=== PATIENT | female | born 1965 | race Caucasian/White ===

== ENCOUNTER 2016-11-14 14:34 | Emergency (ER) | payer OTHER ==
--- NOTE | 2016-11-14 15:32 | ED NURSING NOTES ---
Clinical Report - Nurses [facility] [address] [place] [address] 11/14/2016 14:37 Patient: CONNIE BASHIR TRIAGE Triage time 14:52 Nov 14 2016. Chief Complaint: Location of symptoms- (base/snuff box area to right hand, pt was compounding an IV bag and the glass ampule broke, pt reports lots of bleeding inititally, now controlled). Alert. No acute distress. SEPSIS SCREEN: Sepsis Screen: negative. Negative (no infection suspected/documented). MICHA COMA SCORE: Micha Coma Scale: 15- eyes open spontaneously (4); best verbal response- oriented x 4 (5); best motor response- obeys commands (6). --15:02 Irma Kwan R.N. 14:52 11/14/16. BP: 129/94. HR: 98. RR: 17. O2 saturation: 100%. Temp: 98.5 F. Pain level now: 12/30. --15:02 Imra Kwan R.N. Weight: 94.3 kg stated. Height/Length: 61 inches Per Patient. BMI: 39.3. --15:00 Irma Kwan R.N. Medications Multivitamins Oral. --14:55 Irma Kwan R.N. Allergies Penicillins. --14:59 Irma Kwan R.N. History Arrived walking. Injury occurred. Location of injuries: anatomic snuffbox, right arm. This occurred just prior to arrival. PAST MEDICAL HX: Tetanus status: unknown. Immunizations: up-to-date. Last normal menstrual period- right now day 2. SOCIAL HX: Never smoker. Alcohol use; consumes one liquor weekly. No infectious disease exposure. ABUSE ASSESSMENT: No report of abuse. SELF HARM ASSESSMENT: A self harm assessment was performed. The patient answered "no" to the question "Have you recently felt down, depressed, or hopeless?", "Have you noticed less interest or pleasure in doing things?", "Do you have thoughts of harming or killing yourself?", "Are you here because you tried to hurt yourself?", "Have you ever tried to hurt yourself before today?", "Have you recently had thoughts about harming or killing others?" and "Do you have any dangerous items in your possession?". FALL RISK ASSESSMENT: Fall risk assessment completed. No fall risk identified. NUTRITIONAL RISK ASSESSMENT: The nutritional risk assessment revealed no deficiencies. FUNCTIONAL ASSESSMENT: Functional assessment: no impairments noted. LEARNING NEEDS ASSESSMENT: The learning needs assessment revealed no barriers. SKIN INTEGRITY ASSESSMENT: Skin integrity risk assessment completed. No skin integrity risk identified. --15:02 Irma Kwan R.N. PROBLEMS: Anxiety Reaction. PTSD. --14:56 Irma Kwan R.N. DVT - Deep Venous Thrombosis. --14:56 Irma Kwan R.N. Factor 5 Liden . --14:56 Irma Kwan R.N. ADDITIONAL SURGERIES: Appendectomy. Born with third lung. Tubal Ligation. --14:56 Irma Kwan R.N. Interventions ID and allergy band on patient. To treatment room. --15:02 Irma Kwan R.N. PHYSICAL ASSESSMENT Ambulatory to room. GENERAL / NEURO / PSYCH: Oriented X 4. Alert. Appears in no acute distress. Appears in pain and anxious. EXTREMITIES: Extremities exhibit normal ROM. Neuro-vascular status intact to the extremity. No upper extremity edema. Right hand: subcutaneous 0.5 cm laceration with controlled bleeding. SKIN: Skin intact. Skin is warm and dry. --15:02 Irma Kwan R.N. NURSING PROGRESS NOTES Extremity elevated. Reassurance given. Two patient identifiers checked. Call light placed in reach. Side rails up x 1. Bed placed in lowest position. Brakes of bed on. --15:03 Irma Kwan R.N. 15:22 11/14/2016 Lidocaine Injection. (pulled from [employer] and given to ELECTRICIAN LOCOMOTIVE). --15:33 Irma Kwan R.N. Wound cleansed with sterile saline (per ELECTRICIAN LOCOMOTIVE). WOUND REPAIR: Wound repair performed by ELECTRICIAN LOCOMOTIVE. Preparation: suture tray set-up with 1% lidocaine. Wound cleansed per ELECTRICIAN LOCOMOTIVE. Procedure: wound repaired with sutures. Post-procedure: she was stable, no complications, bleeding controlled, neuro-vascular status intact distal to wound and dressing applied. Total time of assist / procedure: 15 minutes. --15:34 Irma Kwan R.N. Wound cleansed. Applied dressing, following the application of antibiotic ointment. Secured with mateo. --15:51 Shanti Allison, Tech1. DISPOSITION / DISCHARGE Condition at departure: improved. No learning barriers present. Discharge instructions provided and reviewed with the patient. Patient verbalized understanding. Written instructions provided in Icelandic. The patient was discharged by the nurse practitioner. She was discharged to work. She left the Emergency Department ambulatory. ( signs of infection gone over with pt as well as wound care and suture removal. L/I paperwork given to demurrage clerk, wound upon dc c/d/i , dressing placed by DIONTE Lal.). --16:05 Irma Kwan R.N. 16:03 11/14/16. BP: 120/81 taken on the left arm, while sitting. HR: 81. RR: 17. O2 saturation: 100%. Temp: 98 F (oral). Pain level now: 0/10. --16:05 Irma Kwan R.N. Locked/Released at 11/14/2016 16:05 by Irma Kwan R.N.
--- NOTE | 2016-11-14 15:32 | ED NURSING NOTES ---
Clinical Report - Nurses [facility] [address] [place] [address] 11/14/2016 14:37 Patient: CONNIE BASHIR TRIAGE Triage time 14:52 Nov 14 2016. Chief Complaint: Location of symptoms- (base/snuff box area to right hand, pt was compounding an IV bag and the glass ampule broke, pt reports lots of bleeding inititally, now controlled). Alert. No acute distress. SEPSIS SCREEN: Sepsis Screen: negative. Negative (no infection suspected/documented). MICHA COMA SCORE: Micha Coma Scale: 15- eyes open spontaneously (4); best verbal response- oriented x 4 (5); best motor response- obeys commands (6). --15:02 Irma Kwan R.N. 14:52 11/14/16. BP: 129/94. HR: 98. RR: 17. O2 saturation: 100%. Temp: 98.5 F. Pain level now: 12/30. --15:02 Irma Kwan R.N. Weight: 94.3 kg stated. Height/Length: 61 inches Per Patient. BMI: 39.3. --15:00 Irma Kwan R.N. Medications Multivitamins Oral. --14:55 Irma Kwan R.N. Allergies Penicillins. --14:59 Irma Kwan R.N. History Arrived walking. Injury occurred. Location of injuries: anatomic snuffbox, right arm. This occurred just prior to arrival. PAST MEDICAL HX: Tetanus status: unknown. Immunizations: up-to-date. Last normal menstrual period- right now day 2. SOCIAL HX: Never smoker. Alcohol use; consumes one liquor weekly. No infectious disease exposure. ABUSE ASSESSMENT: No report of abuse. SELF HARM ASSESSMENT: A self harm assessment was performed. The patient answered "no" to the question "Have you recently felt down, depressed, or hopeless?", "Have you noticed less interest or pleasure in doing things?", "Do you have thoughts of harming or killing yourself?", "Are you here because you tried to hurt yourself?", "Have you ever tried to hurt yourself before today?", "Have you recently had thoughts about harming or killing others?" and "Do you have any dangerous items in your possession?". FALL RISK ASSESSMENT: Fall risk assessment completed. No fall risk identified. NUTRITIONAL RISK ASSESSMENT: The nutritional risk assessment revealed no deficiencies. FUNCTIONAL ASSESSMENT: Functional assessment: no impairments noted. LEARNING NEEDS ASSESSMENT: The learning needs assessment revealed no barriers. SKIN INTEGRITY ASSESSMENT: Skin integrity risk assessment completed. No skin integrity risk identified. --15:02 Irma Kwan R.N. PROBLEMS: Anxiety Reaction. PTSD. --14:56 Irma Kwan R.N. DVT - Deep Venous Thrombosis. --14:56 Irma Kwan R.N. Factor 5 Liden . --14:56 Irma Kwan R.N. ADDITIONAL SURGERIES: Appendectomy. Born with third lung. Tubal Ligation. --14:56 Irma Kwan R.N. Interventions ID and allergy band on patient. To treatment room. --15:02 Irma Kwan R.N. PHYSICAL ASSESSMENT Ambulatory to room. GENERAL / NEURO / PSYCH: Oriented X 4. Alert. Appears in no acute distress. Appears in pain and anxious. EXTREMITIES: Extremities exhibit normal ROM. Neuro-vascular status intact to the extremity. No upper extremity edema. Right hand: subcutaneous 0.5 cm laceration with controlled bleeding. SKIN: Skin intact. Skin is warm and dry. --15:02 Irma Kwan R.N. NURSING PROGRESS NOTES Extremity elevated. Reassurance given. Two patient identifiers checked. Call light placed in reach. Side rails up x 1. Bed placed in lowest position. Brakes of bed on. --15:03 Irma Kwan R.N. 15:22 11/14/2016 Lidocaine Injection. (pulled from [employer] and given to CUSTOMER TECHNICAL SERVICES MANAGER). --15:33 Irma Kwan R.N. Wound cleansed with sterile saline (per CUSTOMER TECHNICAL SERVICES MANAGER). WOUND REPAIR: Wound repair performed by CUSTOMER TECHNICAL SERVICES MANAGER. Preparation: suture tray set-up with 1% lidocaine. Wound cleansed per CUSTOMER TECHNICAL SERVICES MANAGER. Procedure: wound repaired with sutures. Post-procedure: she was stable, no complications, bleeding controlled, neuro-vascular status intact distal to wound and dressing applied. Total time of assist / procedure: 15 minutes. --15:34 Irma Kwan R.N. Wound cleansed. Applied dressing, following the application of antibiotic ointment. Secured with mateo. --15:51 Shanti Allison, Tech1. DISPOSITION / DISCHARGE Condition at departure: improved. No learning barriers present. Discharge instructions provided and reviewed with the patient. Patient verbalized understanding. Written instructions provided in Lithuanian. The patient was discharged by the nurse practitioner. She was discharged to work. She left the Emergency Department ambulatory. ( signs of infection gone over with pt as well as wound care and suture removal. L/I paperwork given to stock transfer clerk, wound upon dc c/d/i , dressing placed by DIONTE Lal.). --16:05 Irma Kwan R.N. 16:03 11/14/16. BP: 120/81 taken on the left arm, while sitting. HR: 81. RR: 17. O2 saturation: 100%. Temp: 98 F (oral). Pain level now: 0/10. --16:05 Irma Kwan R.N. Locked/Released at 11/14/2016 16:05 by Irma Kwan R.N.
--- NOTE | 2016-11-14 15:32 | ED CLINICAL REPORT ---
Clinical Report - Physicians/Mid Levels [facility] [address] [place] [address] 11/14/2016 14:37 Patient: CONNIE BASHIR Time Seen: 14:56; initial patient contact, initial documentation, patient care assumed. Arrived- By private vehicle. Historian- patient. HISTORY OF PRESENT ILLNESS Chief Complaint: Injury to the right hand. The injury happened just prior to arrival. The patient sustained a laceration from broken glass (attempting to open glass ampule/vial, it broke, cutting hand). Occurred at work. Patient is experiencing mild pain. Patient denies injury to the head or neck. REVIEW OF SYSTEMS The patient sustained a laceration. No swelling, tingling, numbness, weakness or foreign body. All systems otherwise negative, except as recorded above. PAST HISTORY See nurses notes. PROBLEMS: Anxiety Reaction. PTSD. --14:56 Irma Kwan REnrique. DVT - Deep Venous Thrombosis. --14:56 Irma Kwan R.N. ADDITIONAL SURGERIES: Appendectomy. Born with third lung. Tubal Ligation. --14:56 Irma Kwan REnrique. The patient's dominant hand is the right. Tetanus immunization status is up-to-date. SOCIAL HISTORY Never smoker. Occasional alcohol use. No drug use. No recent travel. Is a local resident. FAMILY HISTORY No significant family medical history. ADDITIONAL NOTES The nursing notes have been reviewed with agreement regarding the chief complaint, HPI, ROS, PMH and patient medications and allergies. PHYSICAL EXAM Vital Signs: 11/14/2016 14:52 BP: 129/94. HR: 98. RR: 17. O2 saturation: 100%. Temp: 98.5 F. Pain level now: 6/10. Have been reviewed as abnormal. Hypertensive. Heart rate normal. Respiratory rate normal. Temperature normal. Oxygen saturation normal. Appearance: Alert. Oriented X3. Anxious. No acute distress. Head: Head atraumatic. Eyes: Pupils equal, round and reactive to light. Eyes normal inspection. Respiratory: No respiratory distress. Skin: Skin warm and dry. Skin intact. Extremities: Hand injury present. Dorsal right hand: mild tenderness and subcutaneous 1.0 cm laceration of the radial aspect of the dorsal hand. Neurovascular intact distally. No erythema, swelling, abrasion, ecchymosis or puncture wound. No foreign body or deformity. No limitation of extension. No wrist injury. Hand and wrist exam otherwise negative. Extremities otherwise negative. Neuro, Vascular and Tendons: Vascular status intact. Sensation intact. Motor intact. Tendon function intact. Neuro: Oriented X 3. No motor deficit. No sensory deficit. Note: isolated injury to hand. PROGRESS AND PROCEDURES Laceration Repair: Location: right hand. Length: 1 cm. Complexity: simple (local anesthesia used and sutured). Wound depth/shape- subcutaneous and linear and involving fascia. Wound is clean. No contamination, foreign body or contused tissue present. No tissue loss. Distal neuro/vascular/tendon status normal. Tendon not examined. No tendon deficit or laceration or tendon injury. Local anesthesia provided using 1% lidocaine (2 mL). Prepped with Betadine. Wound explored, cleansed, irrigated and examined to the base in bloodless field with normal saline. Wound not debrided extensively. No foreign material removed. Closure of skin: 4-0 nylon (2 sutures). No skin adhesive applied. Post-procedure: she is stable and there are no complications. Bleeding is controlled and neuro-vascular status is intact distal to the wound. Clean dressing applied. (per nurse/tech, see other notes). Tetanus immunization up-to-date. Estimated blood loss: 5 mL. Course of Care: 15:32 11/14/16. L&I paperwork completed. Patient counseled in person regarding the patient's stable condition and diagnosis. Differential Diagnosis: Other possible considerations: hand lac, fb, skin avulsion. Above considerations are based on history and physical exam. Differential diagnosis was discussed with patient. Disposition: Discharged home in good and improved condition (15:31). Condition: good and stable. CLINICAL IMPRESSION Single deep laceration to the right hand.Treatment of laceration not delayed. No infection, foreign body present or right fingernail injury. INSTRUCTIONS Protect wound and keep wound area clean. Change dressing twice daily. Soak in warm soapy water twice daily. Apply bacitracin twice daily. Sutures should be removed in ten days. Warnings: GENERAL WARNINGS: Return or contact your physician immediately if your condition worsens or changes unexpectedly, if not improving as expected, or if other problems arise. Specifically return if problem worsens. Follow-up: Follow up with your doctor in about ten days even if well and for suture removal and wound check. Call for an appointment. Summary of care provided to patient. Understanding of the discharge instructions verbalized by patient. (Electronically signed by Leora Chandler A.R.N.P. 11/14/2016 16:27)
--- NOTE | 2016-11-14 15:32 | ED ORDER SUMMARY ---
..... Patient: CONNIE BASHIR OrderSheet [facility] VisitID: [id number] [address] [place] [address] 50y, F Registration Date/Time: 11/14/2016 ORDER SHEET Weight: 94.3 kg (stated) Allergies: Penicillins GENERAL ORDERS: Suture Set-up: (15:12 11/14/2016 HBivens A.R.N.P.) (15:30 Melita R.N.) Dress Wounds (15:12 11/14/2016 HBivens A.R.N.P.) (15:40 KPakatherine-Miltonchan R.N.) MEDICATION ORDERS: Lidocaine Injection 1% plain (NOW) (15:11 11/14/2016 HBivens A.R.N.P.) (15:33 KPage-Kuchan R.N.) IV FLUIDS: ORDER SHEET NOTES: [Electronically signed by Irma Kwan R.N. (16:05 11/14/2016)] [Electronically signed by Leora ChandlerR.N.P. (16:27 11/14/2016)] [Electronically locked/signed by Irma Kwan R.N. (16:11/14/2016)]
--- NOTE | 2016-11-14 15:32 | ED ORDER SUMMARY ---
..... Patient: CONNIE BASHIR OrderSheet [facility] VisitID: [id number] [address] [place] [address] 50y, F Registration Date/Time: 11/14/2016 ORDER SHEET Weight: 94.3 kg (stated) Allergies: Penicillins GENERAL ORDERS: Suture Set-up: (15:12 11/14/2016 HBivens A.R.N.P.) (15:30 Melita R.N.) Dress Wounds (15:12 11/14/2016 HBivens A.R.N.P.) (15:40 KPakatherine-Miltonchan R.N.) MEDICATION ORDERS: Lidocaine Injection 1% plain (NOW) (15:11 11/14/2016 HBivens A.R.N.P.) (15:33 KPage-Kuchan R.N.) IV FLUIDS: ORDER SHEET NOTES: [Electronically signed by Irma Kwan R.N. (16:05 11/14/2016)] [Electronically signed by Leora ChandlerR.N.P. (16:27 11/14/2016)] [Electronically locked/signed by Irma Kwan R.N. (16:11/14/2016)]
--- NOTE | 2016-11-14 16:28 | ED MAR SUMMARY ---
..... Medication Administration Record [facility] [address] [place] [address] Patient: CONNIE BASHIR Visit ID: [id number] 50y, F Weight: 94.3 kg Height/Length: 61 in BMI: 39.3 ALLERGIES: Penicillins Given 15:22 11/14/2016 Irma Kwan R.N. Medication Administered: LIDOCAINE [INJECTION], Dose: Injection. Medication Ordered: Lidocaine Injection 1% plain (NOW).
--- NOTE | 2016-11-14 16:28 | ED MAR SUMMARY ---
..... Medication Administration Record [facility] [address] [place] [address] Patient: CONNIE BASHIR Visit ID: [id number] 50y, F Weight: 94.3 kg Height/Length: 61 in BMI: 39.3 ALLERGIES: Penicillins Given 15:22 11/14/2016 Irma Kwan R.N. Medication Administered: LIDOCAINE [INJECTION], Dose: Injection. Medication Ordered: Lidocaine Injection 1% plain (NOW).
--- NOTE | 2016-11-14 16:28 | ED MED RECONCILIATION SUMMARY ---
Patient: CONNIE BASHIR Medication Reconciliation Report [facility] VisitID: [id number] [address] [place] [address] 50y, F Registration Date/Time: 11/14/2016 Weight: 94.3 kg Height/Length: 61 in. BMI: 39.3 ALLERGIES: Penicillins The patient's Home Medications are listed below: THE FOLLOWING MEDICATIONS NEED TO BE RECONCILED: Multivitamins Oral The source(s) of the original Home Medication information: Not obtained. The following Medications were given to the patient in the Emergency Department: Lidocaine [Injection] Injection, administered: 11/14/2016 3:22:00 PM The following Medications were prescribed to the patient: None.
--- NOTE | 2016-11-14 16:28 | ED MED RECONCILIATION SUMMARY ---
Patient: CONNIE BASHIR Medication Reconciliation Report [facility] VisitID: [id number] [address] [place] [place] [address] 50y, F Registration Date/Time: 11/14/2016 Weight: 94.3 kg Height/Length: 61 in. BMI: 39.3 ALLERGIES: Penicillins The patient's Home Medications are listed below: THE FOLLOWING MEDICATIONS NEED TO BE RECONCILED: Multivitamins Oral The source(s) of the original Home Medication information: Not obtained. The following Medications were given to the patient in the Emergency Department: Lidocaine [Injection] Injection, administered: 11/14/2016 3:22:00 PM The following Medications were prescribed to the patient: None.
--- NOTE | 2016-11-14 16:28 | ED DISCHARGE INSTRUCTIONS ---
Patient: CONNIE BASHIR General Instructions [facility] VisitID: [id number] [address] [place] [address] 50y, F Registration Date/Time: 11/14/2016 Single deep laceration to the right hand.Treatment of laceration not delayed. No infection, foreign body present or right fingernail injury. INSTRUCTIONS Protect wound and keep wound area clean. Change dressing twice daily. Soak in warm soapy water twice daily. Apply bacitracin twice daily. Sutures should be removed in ten days. Warnings: GENERAL WARNINGS: Return or contact your physician immediately if your condition worsens or changes unexpectedly, if not improving as expected, or if other problems arise. Specifically return if problem worsens. Follow-up: Follow up with your doctor in about ten days even if well and for suture removal and wound check. Call for an appointment. Summary of care provided to patient. Understanding of the discharge instructions verbalized by patient. ADDITIONAL INFORMATION Laceration (All Closures) Alaceration is a cut through the skin. This will usually require stitches (sutures) or milla if it is deep. Minor cuts may be treated with a surgical tape closure orskin glue. Home care The following guidelines will help you care for your laceration at home: Extremity, face, or trunk wounds Keep the wound clean and dry. If a bandage was applied and it becomes wet or dirty, replace it. Otherwise, leave it in place for the first 24 hours. If stitches or milla were used, clean the wound daily. After removing the bandage, wash the area with soap and water. Use a wet cotton swab to loosen and remove any blood or crust that forms. The doctor may prescribe an antibiotic cream or ointment to prevent infection. Do not stop taking this medication until you have finished the prescribed course or the doctor tells you to stop. The doctor may also prescribe medications for pain. Follow the doctors instructions for taking these medications. You may remove the bandage to shower as usual after the first 24 hours, but do not soak the area in water (no swimming) until the stitches or milla are removed. If surgical tape was used, keep the area clean and dry. If it becomes wet, blot it dry with a towel. If skin glue was used, do not scratch, rub, or pick at the adhesive film. Do not place tape directly over the film. Do not apply liquid, ointment, or creams to the wound while the film is in place. Do not clean the wound with peroxide and do not apply ointments. Avoid activities that cause heavy sweating until the film has fallen off. Protect the wound from prolonged exposure to sunlight or tanning lamps. You may shower as usual but do not soak the wound in water (no baths or swimming). The film will fall off by itself in 510 days. Scalp wounds During the first two days, you may carefully rinse your hair in the shower to remove blood, glass or dirt particles. After two days, you may shower and shampoo your hair normally. Do not soak your scalp in the tub or go swimming until the stitches or milla have been removed. Talk with your doctor before applying any antibiotic ointment to the wound. Mouth wounds Eat soft foods to reduce pain. If the cut is inside of your mouth, clean by rinsing after each meal and at bedtime with a mixture of equal parts water and hydrogen peroxide (do not swallow!). Or, you can use a cotton swab to directly apply hydrogen peroxide onto the cut. Mouth wounds can be painful when eating. You may use an [id number] local numbing solution for pain relief. If this is not available, you may use any numbing solution for teething babies. You may apply this directly to the sores with a cotton-tip swab or with your finger. Follow-up care Follow up with your health care provider. Most skin wounds heal within ten days. Mouth and facial wounds heal within five days. However, even with proper treatment, a wound infection may sometimes occur. Therefore, you should check the wound daily for signs of infection listed below. Stitches should be removed from the face within five days; stitches and milla should be removed from other parts of the body within 714 days. If dissolving stitches were used in the mouth, these will fall out or dissolve without the need for removal. If tape closures were used, remove them yourself if they have not fallen off after 7 days. Ifskin glue was used, the film will fall off by itself in 510 days. When to seek medical care Get prompt medical attention if any of these occur: Bleeding not controlled by direct pressure Signs of infection, including increasing pain in the wound, increasing wound redness or swelling, or pus coming from the wound Fever of 100.4F (38C) or higher, or as directed by your health care provider Stitches or milla come apart or fall out or surgical tape falls off before 7 days Wound edges re-open Laceration, Extremity (Sutures, Check, Or Tape) A laceration is a cut through the skin. This will usually require stitches (sutures) or milla if it is deep. Minor cuts may be treated with surgical tape closures. Home care The following guidelines will help you care for your laceration at home: Keep the wound clean and dry. If a bandage was applied and it becomes wet or dirty, replace it. Otherwise, leave it in place for the first 24 hours, then change it once a day or as directed. If stitches or milla were used, clean the wound daily: After removing the bandage, wash the area with soap and water. Use a wet cotton swab to loosen and remove any blood or crust that forms. After cleaning, keep the wound clean and dry. Talk with your doctor before applying any antibiotic ointment to the wound. Reapply the bandage. You may remove the bandage to shower as usual after the first 24 hours, but do not soak the area in water (no swimming) until the stitches or milla are removed. If surgical tape closures were used, keep the area clean and dry. If it becomes wet, blot it dry with a towel. The doctor may prescribe an antibiotic cream or ointment to prevent infection. Do not stop taking this medication until you have finished the prescribed course or the doctor tells you to stop. The doctor may also prescribe medications for pain. Follow the doctors instructions for taking these medications. If you have chronic liver or kidney disease or ever had a stomach ulcer or GI bleeding, talk with your doctor before using these medicines. Follow-up care Follow up with your health care provider. Most skin wounds heal within ten days. However, an infection may sometimes occur despite proper treatment. Therefore, check the wound daily for the signs of infection listed below. Stitches and milla should be removed within 714 days. If surgical tape closures were used, you may remove them after 10 days, if they have not fallen off by then. Notify your doctor if you notice persistent numbness or weakness in the injured extremity. (Note:A radiologist will review any X-rays that were taken. We will notify you of any new findings that may affect your care.) When to seek medical care Get prompt medical attention if any of these occur: Increasing pain in the wound Redness, swelling, or pus coming from the wound Fever of 100.4F (38C) or higher, or as directed by your health care provider If stitches or milla come apart or fall out before your next appointment If the surgical tape closures fall off within seven days, or the wound edges re-open Bleeding not controlled by direct pressure You have been given the following additional information: Laceration, All Laceration, Extrem (Suture, Staple, Or Tape) (Electronically signed by Leora Chandler A.R.N.P. 11/14/2016 16:27)
== END 2016-11-14 15:57 | disposition home or self-care (01) ==
LOC: ED SRH 14:34
DX: S61.411A Laceration without foreign body of right hand, initial encounter (principal); W25.XXXA Contact with sharp glass, initial encounter; Y93.89 Activity, other specified; Y92.89 Other specified places as the place of occurrence of the external cause; Y99.0 Civilian activity done for income or pay; Z88.0 Allergy status to penicillin